=== PATIENT | female | born 1970 | race Caucasian/White ===

== ENCOUNTER 2020-04-12 20:45 | Emergency (ER) | payer OTHER, MEDICARE ==
[~2020-04-12] VITALS: Ht 175.3 cm; Wt 80.0 kg
[2020-04-12] MEDS ORDERED: IV NORMAL SALINE 1,000ML 1,000 ML IV ONE (21:15)
[2020-04-12] MEDS ORDERED: FAMOTIDINE 20 MG/2 ML VIAL IVP ONE (21:15)
[2020-04-12] MEDS ORDERED: methylPREDNISolone SOD SUCC PF 125 MG/2 ML VIAL. IV ONE (21:15)
[2020-04-12] MEDS ORDERED: LIDO:MAALOX 1:1 20 ML SINGLE DOSE. PO ONE (21:15)
--- NOTE | 2020-04-12 22:09 | PHYS DOC ---
Past History Past Medical History: Glaucoma Additional Past Medical Histor: myelofibrosis, h/o bone marrow transplant Past Surgical History: , Other Additional Past Surgical Histo: bladder repair Alcohol Use: Occasionally Adult General Chief Complaint Chief Complaint: ALLERGIC REACTION HPI HPI Patient is a 49-year-old female patient with extensive history of allergies presenting today complaining of an allergic reaction with hives that she noted after she finished eating a piece of steak. Patient states she has had multiple allergy testing including allergy transplant. She states whenever she has any hives she has to be seen in the emergency room and get epinephrine, steroid IV fluids GI cocktail and an antihistamine which he already took. Denies any throat or tongue swelling. She states she has an internal itch to her neck and chest area. Review of Systems Review of Systems Constitutional: Denies fever or chills [] Eyes: Denies change in visual acuity, redness, or eye pain [] HENT: Denies nasal congestion or sore throat [] Respiratory: Denies cough or shortness of breath [] Cardiovascular: No additional information not addressed in HPI [] GI: Denies abdominal pain, nausea, vomiting, bloody stools or diarrhea [] : Denies dysuria or hematuria [] Musculoskeletal: Denies back pain or joint pain [] Integument: Reports allergic reaction hives Neurologic: Denies headache, focal weakness or sensory changes [] All other systems were reviewed and found to be within normal limits, except as documented in this note. Current Medications Current Medications Current Medications Medications (Trade) Dose Ordered Sig/Dipti Start Time Stop Time Status Last Admin Dose Admin Epinephrine HCl (EPINEPHrine AMPULE) 1 mg 1X ONCE 04/12/20 21:15 04/12/20 21:21 DC Famotidine (Pepcid Vial) 20 mg 1X ONCE 04/12/20 21:15 04/12/20 21:21 DC Methylprednisolone Sodium Succinate (SOLU-Medrol 125MG VIAL) 125 mg 1X ONCE 04/12/20 21:15 04/12/20 21:21 DC Multi-Ingredient Mouthwash/Gargle (Gi Cocktail) 20 ml 1X ONCE 04/12/20 21:15 04/12/20 21:21 DC Sodium Chloride 1,000 ml @ 1,000 mls/hr 1X ONCE 04/12/20 21:15 04/12/20 22:14 Allergies Allergies Allergies Coded Allergies Type Severity Reaction Last Updated Verified Iodinated Contrast Media Allergy Unknown 04/12/20 Yes Physical Exam Physical Exam Constitutional: Well developed, well nourished, no acute distress, non-toxic appearance. [] HENT: Normocephalic, atraumatic, bilateral external ears normal, oropharynx moist, no oral exudates, nose normal. [] Airways open, no throat or tongue swelling. Eyes: PERRLA, EOMI, conjunctiva normal, no discharge. [] Neck: Normal range of motion, no tenderness, supple, no stridor. [] Cardiovascular:Heart rate regular rhythm, no murmur [] Lungs & Thorax: Bilateral breath sounds clear to auscultation [] Abdomen: Bowel sounds normal, soft, no tenderness, no masses, no pulsatile masses. [] Skin: Warm, dry, hives noted on patient's flank region, right upper extremity Back: No tenderness, no CVA tenderness. [] Extremities: No tenderness, no cyanosis, no clubbing, ROM intact, no edema. [] Neurologic: Alert and oriented X 3, normal motor function, normal sensory function, no focal deficits noted. [] Psychologic: Affect normal, judgement normal, mood normal. [] Current Patient Data Vital Signs Vital Signs Date Time Temp Pulse Resp B/P (MAP) Pulse Ox O2 Delivery O2 Flow Rate FiO2 04/12/20 21:00 98.0 76 18 145/94 (111) 97 Room Air EKG EKG [] Radiology/Procedures Radiology/Procedures [] Heart Score Risk Factors: Risk Factors: DM, Current or recent (<one month) smoker, HTN, HLP, family history of CAD, obesity. Risk Scores: Risk Factors: DM, Current or recent (<one month) smoker, HTN, HLP, family history of CAD, obesity. Course & Med Decision Making Course & Med Decision Making Pertinent Labs and Imaging studies reviewed. (See chart for details) This is a 49-year-old female patient with extensive history of allergies presented to the ED today complaining of hives that began after she finished eating steak. Patient's airway is open. There is no throat or tongue swelling. She has hives to the left flank and right upper extremity. She has self requested epinephrine, GI cocktail, steroid, she already took an antihistamine. She was given epinephrine IV fluids GI cocktail Solu-Medrol, epinephrine and famotadine. F/u with her doctor when she returns to [place]. Marilee Disclaimer Marilee Disclaimer This electronic medical record was generated, in whole or in part, using a voice recognition dictation system. Departure Departure: Impression: Primary Impression: Allergic reaction Disposition: 01 DC HOME SELF CARE/HOMELESS Condition: STABLE Referrals: NON,STAFF (PCP) Follow-up in 1 to 2 weeks on the Patient Instructions: Cheryle, [id number] Additional Instructions: You were evaluated in the emergency room. Please follow-up with your doctor in [place] as soon as you get back home. Come back to the Ed if symptoms worsen Problem Qualifiers Primary Impression: Allergic reaction Encounter type: initial encounter Qualified Codes: T78.40XA - Allergy, unspecified, initial encounter TRACY FENTON APRN Apr 12, 2020 22:09
[2020-04-12 22:45] VITALS: BP 124/84
== END 2020-04-12 22:48 | disposition home or self-care (01) ==
LOC: ER 20:45
DX: T78.1XXA Other adverse food reactions, not elsewhere classified, initial encounter (principal); Z88.8 Allergy status to other drugs, medicaments and biological substances; X58.XXXA Exposure to other specified factors, initial encounter
CPT/HCPCS: 96372; 96374; 96375; 99284; J0171; J2930; J3490; J7030